=== PATIENT | male | born 1960 | race Caucasian/White ===

== ENCOUNTER 2016-07-12 20:46 | Emergency (ER) | payer OTHER ==
[~2016-07-12] VITALS: Ht 190.5 cm; Wt 106.4 kg
[2016-07-12 20:51] VITALS: Ht 190.5 cm; Wt 106.4 kg
[2016-07-12] MEDS ORDERED: VNTHFA/IN INH (20:59)
[2016-07-12] MEDS ORDERED: IBUP-1050 PO (21:00)
--- NOTE | 2016-07-12 22:21 | DIAGNOSTIC IMAGING REPORT ---
CT OF THE HEAD WITHOUT CONTRAST CLINICAL HISTORY: Right head/ear pain. COMPARISON STUDY: No previous studies for comparison. CT DOSE: 614.27 mGy.cm TECHNIQUE: Helical axial images of the head were obtained without IV contrast. Automated exposure control was utilized for the study. FINDINGS: No acute intracranial hemorrhage, midline shift or mass effect is present. Ventricular system is normal. Basilar cisterns are patent. There are no extra-axial collections. Cook-white differentiation is maintained. There are no findings to suggest acute dural sinus thrombosis or acute territorial infarct. There are no significant calvarial abnormalities. Note is made of moderate polypoid mucosal thickening of the left sphenoid sinus. Mastoid air cells are clear. IMPRESSION: 1. No acute intracranial findings. 2. Polypoid mucosal thickening of the left sphenoid sinus. Electronically signed by: Davie Parker M.D. 07/12/2016 10:20 PM Dictated Date/Time: 07/12/2016 10:16 PM
--- NOTE | 2016-07-12 22:36 | EMERGENCY ROOM VISIT NOTE ---
History First contact with patient: 21:07 Chief Complaint: HEAD PAIN Stated Complaint: R SIDED HEAD/EAR PAIN History of Present Illness The patient is a 55 year old male who presents to the Emergency Room with complaints of right ear pain. The patient notes that for the past 2 years, the right side of his head has had an auto feeling. He states that it feels somewhat numb. 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 The patient states that he has had pain in the right ear since yesterday. He states it feels sensitive to touch. He denies any rashes in the area. He denies any erythema or warmth. The patient denies any recent injury. He denies any difficulty hearing. He denies any fevers/chills, neck pain or stiffness. Review of Systems A complete 10-point Review of Systems was discussed with the patient, with pertinent positives and negatives listed in the History of Present Illness. All remaining Review of Systems questions can be considered negative unless otherwise specified. Social History Smoking Status: Never Smoker Current/Historical Medications Scheduled Ibuprofen (Advil), 400 MG PO DAILY Scheduled PRN Albuterol Hfa (Ventolin Hfa), 1 PUFF INH DAILY PRN for Shortness of Breath Allergies Uncoded Allergies: NKDA (Allergy, Unknown, 06/01/02) Physical Exam Vital Signs Date Time Temp Pulse Resp B/P Pulse Ox O2 Delivery O2 Flow Rate FiO2 07/12/16 22:45 36.9 75 18 152/93 96 07/12/16 22:29 75 18 152/93 96 Room Air 07/12/16 20:51 36.9 88 18 169/101 95 Room Air Physical Exam VITALS: Vitals are noted on the nurse's note and reviewed by myself. Vital signs stable. GENERAL: This is a 55-year-old male, in no acute distress, nondiaphoretic, well- developed well-nourished. SKIN: Capillary reflex less than 2 seconds. No rashes noted. HEENT: Normocephalic. PERRLA. EOMI. Nares patent. Mucous membranes moist. Neck is supple without nuchal rigidity. HEART: Regular rate and rhythm without murmurs gallops or rubs. LUNGS: Clear to auscultation bilaterally without wheezes, rales or rhonchi. No retractions or accessory muscle use. NEURO: Patient was alert and oriented to person place and time. Medical Decision & Procedures ER Provider Diagnostic Interpretation: CT OF THE HEAD WITHOUT CONTRAST CLINICAL HISTORY: Right head/ear pain. COMPARISON STUDY: No previous studies for comparison. CT DOSE: 614.27 mGy.cm TECHNIQUE: Helical axial images of the head were obtained without IV contrast. Automated exposure control was utilized for the study. FINDINGS: No acute intracranial hemorrhage, midline shift or mass effect is present. Ventricular system is normal. Basilar cisterns are patent. There are no extra-axial collections. Cook-white differentiation is maintained. There are no findings to suggest acute dural sinus thrombosis or acute territorial infarct. There are no significant calvarial abnormalities. Note is made of moderate polypoid mucosal thickening of the left sphenoid sinus. Mastoid air cells are clear. IMPRESSION: 1. No acute intracranial findings. 2. Polypoid mucosal thickening of the left sphenoid sinus. Medical Decision Differential diagnosis includes cellulitis, shingles, ear infection, among others. The patient was evaluated as above. There is no evidence of otitis media or otitis externa on examination. A CT scan was performed due to the patient's history of chronic pain in the right side of his head. CT was read by radiology with no acute findings. The patient may have herpes zoster, but there is no rash at this time. There is no evidence of cellulitis. I am unsure of the exact cause of the patient's ear pain at this time. He was instructed to follow-up closely with his primary care provider. He will return with any signs of a rash or any new/concerning symptoms. The patient's case was reviewed with Dr. Gastelum, ED attending physician, who agreed with my assessment and treatment plan. He verbalized understanding of my assessment and treatment plan and was discharged home in good condition. Impression Primary Impression: Right ear pain Departure Information Dispostion Home / Self-Care Condition GOOD Referrals Betsy Morrissey M.D. (PCP) Patient Instructions [facility] Additional Instructions Follow-up with your primary care provider within 48 hours for further evaluation of your symptoms. Return to the emergency with any signs of a rash, fevers, worsening pain or any other new/concerning symptoms.
[2016-07-12 22:45] VITALS: BP 152/93; PULSE 75; TEMP 36.9; O2SAT 96
== END 2016-07-12 22:45 | disposition home or self-care (01) ==
LOC: C.EDB 20:48 → C.EDD 22:45
DX: H92.01 Otalgia, right ear (principal)